=== PATIENT | male | born 1975 | race Caucasian/White ===

== ENCOUNTER → 2017-04-28 | Outpatient (CLI) | payer OTHER ==
--- NOTE | 2017-04-28 13:44 | REP ---
MAXILLOFACIAL CT STUDY WITHOUT CONTRAST: HISTORY: Deviated nasal septum. CT FINDINGS: Frontal sinuses are not developed. Ethmoid air cells and sphenoid air cells are clear. Maxillary sinuses are clear. Mastoid aeration is normal and symmetric. The nasal septum is deviated inferiorly with a significant leftward beak. Nasal turbinate soft tissues are otherwise unremarkable. Ostiomeatal complexes are patent. No nasal polyp is appreciated. No bony destructive lesion is seen. No intraorbital abnormality or intracranial abnormality is observed. IMPRESSION: Leftward deviation of the inferior nasal septum with a leftward bony beak. Signed by Bryant Gipson MD 04/28/2017 04:13 P
== END ==
LOC: M RAD 12:36
PROVIDERS: ATTEND Otolaryngology
DX: J34.2 Deviated nasal septum (principal)

== ENCOUNTER 2017-05-23 10:45 | Day surgery (SDC) | payer OTHER ==
[2017-05-23] MEDS ORDERED: LR 1,000 ML IV ×2 (11:00→15:45)
[2017-05-23] MEDS ORDERED: MIDAZOLAM INJ 2 MG/2 ML VIAL (J2250) As Ordered (13:22)
[2017-05-23] MEDS ORDERED: fentaNYL 100 MCG/2 ML INJECTION (J3010) As Ordered (13:22)
[2017-05-23] MEDS ORDERED: PROPOFOL 200 MG/20 ML VIAL As Ordered (13:23)
[2017-05-23] MEDS ORDERED: ROCURONIUM BROMIDE 50 MG/5 ML VIAL As Ordered (13:24)
[2017-05-23] MEDS ORDERED: LIDOCAINE 2% INJ 100 MG/5 ML SDV (FOR ANES.) As Ordered (13:24)
[2017-05-23] MEDS ORDERED: ONDANSETRON 4MG/2ML VIAL (J2405) As Ordered (13:24)
[2017-05-23] MEDS ORDERED: dexameTHASONE 4 MG/ML 1ML VIAL (J1100) As Ordered (13:24)
[2017-05-23] MEDS: LIDOCAINE W/EPINEPHRINE 1% 20ML VIAL As Ordered (13:58)
[2017-05-23] MEDS: OXYMETAZOLINE NASAL SPRAY (AFRIN) As Ordered ×2 (14:12)
[2017-05-23] MEDS: SODIUM CHLORIDE 0.9% NASAL GEL 15MG (AYR) As Ordered (14:48)
[2017-05-23] MEDS ORDERED: GLYCOPYRROLATE INJ 0.2 MG/ML 2 ML VIAL As Ordered (15:07)
[2017-05-23] MEDS ORDERED: fentaNYL 100 MCG/2 ML INJECTION (J3010) IV (15:45)
[2017-05-23] MEDS ORDERED: PERCOCET 5MG/325MG TAB PO (15:45)
[2017-05-23] MEDS ORDERED: KETOROLAC 30 MG/ML VIAL (J1885) IV (15:45)
[2017-05-23] MEDS ORDERED: MEPERIDINE INJ 25 MG/ML VIAL (J2175) IV (15:45)
[2017-05-23] MEDS ORDERED: ONDANSETRON 4MG/2ML VIAL (J2405) IV (15:45)
== END 2017-05-23 17:10 | disposition home or self-care (01) ==
LOC: M SDC 10:45
DX: J34.2 Deviated nasal septum (principal); J34.3 Hypertrophy of nasal turbinates; J31.0 Chronic rhinitis; G47.33 Obstructive sleep apnea (adult) (pediatric); M54.5 Low back pain; G89.29 Other chronic pain; Z87.891 Personal history of nicotine dependence; Z91.040 Latex allergy status; Z91.81 History of falling; Z87.81 Personal history of (healed) traumatic fracture
CPT/HCPCS: 30520